=== PATIENT | female | born 1990 | race Caucasian/White ===

== ENCOUNTER 2018-01-15 20:58 | Emergency (ER) | payer SELFPAY ==
[~2018-01-15] VITALS: Ht 165.1 cm; Wt 56.7 kg
[~2018-01-15 20:58] MED LIST: AMOXICILLIN500 M2 PO; AMOXICILLIN500 MG PO; AMOXIL250 MG/5 M PO; BACTRIM DS 8001 TA1 PO; BACTROBAN2% TP; CLARITIN-D 12 H1 TAB PO; CLARITIN10 MG PO; CORDROL20 MG PO; DIFLUCAN150 MG PO; FLONASE ALLERG9.9 ML NAS; KEFLEX500 MG PO; NKHM; NORCO 10-325 T1 EACH PO; PREDNISONE10 MG PO; ROBITUSSIN AC 110 ML PO; TERBINAFINE HCL1% TP; TESSALON PERLE100 M1 PO; TORADOL10 MG PO; ZITHROMAX Z PA250 MG PO; ZITHROMAX1 GM/PACKE
[2018-01-15 21:25] LABS: BILIRUBIN NEGATIVE (NEGATIVE); BLOOD NEGATIVE (NEGATIVE); CLARITY SL CLOUDY (CLEAR); COLOR YELLOW (YELLOW); GLUCOSE NEGATIVE (NEGATIVE); KETONE 1+ (NEGATIVE); LEUKO ESTERASE NEGATIVE (NEGATIVE); NITRITE NEGATIVE (NEGATIVE); PH 5.5 (5.0-9.0); SPECIFIC GRAVITY >= 1.030 (1.005-1.030); UROBILINOGEN 0.2 E.U./dl (0.2-1.0)
[2018-01-15 21:43] LABS: HEMATOCRIT 37.5 % (37.0-47.0); HEMOGLOBIN 12.4 g/dl (12.0-16.0); MEAN CELL VOLUME 93.3 fl (81.0-99.0); MEAN CORPUSCULAR HGB 30.8 pg (27.0-31.0); MEAN CORPUSCULAR HGB CONC 33.1 g/dl (33.0-37.0); MEAN PLATELET VOLUME 10.9 fl (9.6-12.3); PLATELET COUNT AUTOMATED 157 10*3/uL (130-400); RED BLOOD COUNT 4.02 10*6/uL (4.10-5.10); RED CELL DISTRI WIDTH 12.2 % (0-14.5); WHITE BLOOD COUNT 9.2 10*3/uL (4.8-10.8)
[2018-01-15 21:48] LABS: BACTERIA 1+; MUCOUS 2+
[2018-01-15 21:57] LABS: ALBUMIN 3.4 gm/dl (3.1-4.5); ALKALINE PHOSPHATASE 40 U/L (45-117); BUN 11 mg/dl (7-24); CHLORIDE 107 mmol/L (98-107); CREATININE 0.59 mg/dL (0.55-1.02); LIPASE 87 U/L (73-393); POTASSIUM 3.7 mmol/L (3.5-5.1); SGOT/AST 10 IU/L (3-35); SGPT/ALT 15 U/L (12-78); SODIUM 139 mmol/L (136-145); TOTAL PROTEIN 6.8 gm/dL (6.4-8.2)
[2018-01-15 22:02] LABS: ATYPICAL LYMPHS 1 % (0-0); PLATELET SUFFICIENCY NORMAL (NORMAL); TOTAL CELLS COUNTED 100 #CELLS
[2018-01-15] MEDS ORDERED: ZOFRAN ODT4 MG SL (22:33)
== END 2018-01-15 22:38 | disposition home or self-care (01) ==
LOC: ED 20:58
PROVIDERS: Physician Assistant
DX: K52.9 Noninfective gastroenteritis and colitis, unspecified (principal)

== ENCOUNTER 2018-06-02 08:54 | Emergency (ER) | payer SELFPAY ==
[~2018-06-02] VITALS: Ht 165.1 cm; Wt 56.7 kg
[~2018-06-02 08:54] MED LIST changes: +ZOFRAN ODT4 MG SL
[2018-06-02] MEDS ORDERED: AMOXICILLIN500 M3 PO (09:14)
[2018-07-22] MEDS ORDERED: MEDROL DOSEPAK4 MG PO (17:17)
== END 2018-06-02 10:00 | disposition home or self-care (01) ==
LOC: ED 08:54
DX: J02.9 Acute pharyngitis, unspecified (principal); F17.298 Nicotine dependence, other tobacco product, with other nicotine-induced disorders; Z79.899 Other long term (current) drug therapy

== ENCOUNTER 2022-08-06 20:48 | Emergency (ER) | payer SELFPAY ==
[~2022-08-06] VITALS: Ht 165.1 cm; Wt 52.2 kg
[~2022-08-06 20:48] MED LIST changes: +AMOXICILLIN500 M3 PO; +MEDROL DOSEPAK4 MG PO
[2022-08-06 22:00] LABS: BASO % 0.3 % (0.0-1.0); EOS % 0.1 % (1.0-4.0); HEMATOCRIT 41.1 % (37.0-47.0); LYMPH # 1.3 10*3/uL (1.3-4.4); LYMPH % 11.9 % (27.0-41.0); MEAN CELL VOLUME 91.1 fl (81.0-99.0); MEAN CORPUSCULAR HGB CONC 34.1 g/dl (33.0-37.0); MEAN PLATELET VOLUME 10.8 fl (9.6-12.3); MONO # 0.4 10*3/uL (0.1-1.0); MONO % 3.6 % (3.0-9.0); NEUT # 8.8 10*3/uL (2.3-7.9); NEUT % 83.5 % (47.0-73.0); PLATELET COUNT AUTOMATED 259 10*3/uL (130-400); RED BLOOD COUNT 4.51 10*6/uL (4.10-5.10); RED CELL DISTRI WIDTH 12.2 % (0-14.5); WHITE BLOOD COUNT 10.6 10*3/uL (4.8-10.8)
[2022-08-06 22:24] LABS: ALKALINE PHOSPHATASE 56 U/L (46-116); BUN 10 mg/dl (9-23); CHLORIDE 107 mmol/L (98-107); LIPASE 32 U/L (12-53); POTASSIUM 3.6 mmol/L (3.4-5.1); SGPT/ALT 15 U/L (10-49); TOTAL PROTEIN 6.7 gm/dL (6.0-8.0)
[2022-08-07 01:23] LABS: BILIRUBIN Negative (Negative); BLOOD Negative (Negative); CLARITY Clear (Clear); COLOR Dark Yellow (Yellow); GLUCOSE Negative (Negative); KETONE Negative (Negative); LEUKO ESTERASE Trace (Negative); NITRITE Negative (Negative)
[2022-08-07 01:54] LABS: BACTERIA TRACE; EPITHELIAL CELLS 21-30
== END 2022-08-07 03:31 | disposition home or self-care (01) ==
LOC: ED 20:48
PROVIDERS: Emergency Medicine
DX: K52.9 Noninfective gastroenteritis and colitis, unspecified (principal)

== ENCOUNTER 2022-10-12 11:01 | Emergency (ER) | payer OTHER ==
[~2022-10-12] VITALS: Ht 165.1 cm; Wt 49.4 kg
[2022-10-12 11:53] LABS: HEMATOCRIT 39.3 % (37.0-47.0); MEAN CORPUSCULAR HGB 30.9 pg (27.0-31.0); MEAN CORPUSCULAR HGB CONC 32.8 g/dl (33.0-37.0); MEAN PLATELET VOLUME 10.8 fl (9.6-12.3); PLATELET COUNT AUTOMATED 177 10*3/uL (130-400); RED BLOOD COUNT 4.18 10*6/uL (4.10-5.10); RED CELL DISTRI WIDTH 12.3 % (0-14.5); WHITE BLOOD COUNT 21.5 10*3/uL (4.8-10.8)
[2022-10-12 11:54] LABS: MANUAL DIFF REFLEX YES
[2022-10-12 11:58] LABS: BILIRUBIN Negative (Negative); BLOOD Trace-Intact (Negative); CLARITY Cloudy (Clear); COLOR Yellow (Yellow); GLUCOSE Negative (Negative); KETONE Negative (Negative); LEUKO ESTERASE 2+ (Negative); NITRITE Positive (Negative); PH 5.5 (4.5-8.0)
[2022-10-12 12:15] LABS: ALKALINE PHOSPHATASE 56 U/L (46-116); BUN 11 mg/dl (9-23); CHLORIDE 104 mmol/L (98-107); LIPASE 30 U/L (12-53); POTASSIUM 3.7 mmol/L (3.4-5.1); SGPT/ALT 19 U/L (10-49); TOTAL PROTEIN 6.4 gm/dL (6.0-8.0)
[2022-10-12 12:17] LABS: TOTAL CELLS COUNTED 100 #CELLS
[2022-10-12 12:18] LABS: PLATELET SUFFICIENCY NORMAL (NORMAL)
[2022-10-12 12:23] LABS: BACTERIA 4+
[2022-10-12 12:26] LABS: RBC 0-2 rbc/hpf (0-2); WBC 51-100 wbc/hpf (0-5)
[2022-10-12] MEDS ORDERED: CIPRO500 MG PO (13:15)
[2022-10-12] MEDS ORDERED: ONDANSETRON4 MG SL (13:20)
[2022-10-12] MEDS ORDERED: KETOROLAC10 MG PO (13:20)
== END 2022-10-12 14:17 | disposition home or self-care (01) ==
LOC: ED 11:01
PROVIDERS: Nurse Practitioner Family
DX: D72.829 Elevated white blood cell count, unspecified (principal); N10 Acute pyelonephritis; N39.0 Urinary tract infection, site not specified; Z91.040 Latex allergy status

== ENCOUNTER → 2022-11-07 | Outpatient (CLI) | payer OTHER ==
[~2022-11-07] MED LIST changes: +CIPRO500 MG PO; +KETOROLAC10 MG PO; +ONDANSETRON4 MG SL
== END | disposition home or self-care (01) ==
LOC: RAD 12:49
PROVIDERS: ATTEND Nurse Practitioner Family
DX: R10.9 Unspecified abdominal pain (principal)